=== PATIENT | female | born 1960 | race Two or more races ===

== ENCOUNTER 2023-05-01 20:00 | Inpatient (IN) | payer MEDICAID, OTHER ==
[~2023-05-01] VITALS: Ht 154.9 cm; Wt 68.9 kg
[2023-05-01 21:33] LABS: Alanine Aminotransferase 21 U/L (7-40); Albumin 4.3 g/dL (3.2-4.8); Alkaline Phosphatase 76 U/L (46-116); Anion Gap 7.2 (5-15); Aspartate Aminotransferase < 8 U/L (13-40); Blood Urea Nitrogen 19 mg/dL (9-23); Calcium 9.1 mg/dL (8.5-10.1); Carbon Dioxide 24.8 mmol/L (20-30); Chloride 109 mmol/L (98-107); Glucose 101 mg/dL (74-106); Potassium 4.3 mmol/L (3.5-5.1); Sodium 141 mmol/L (136-145)
[2023-05-01 21:34] LABS: Bilirubin, Total 0.3 mg/dL (0.2-1.0); Total Protein 6.8 g/dL (5.7-8.2)
[2023-05-01 21:40] LABS: Basophils # (auto) 0 10 ^3/uL (0-0.2); Basophils % (auto) 0.5 % (0.0-2.0); Eosinophils # (auto) 0.4 10 ^3/uL (0-0.8); Hematocrit 38.9 % (36.0-46.0); Hemoglobin 12.9 g/dL (12.2-16.2); Lymphocytes # (auto) 2.2 10 ^3/uL (0.4-5.4); Lymphocytes % (auto) 31.2 % (10.0-50.0); Mean Corpuscular Hemoglobin 29.4 pg (28.0-32.0); Mean Corpuscular Hgb Conc. 33.2 g/dL (32.0-36.0); Mean Corpuscular Volume 88.5 fL (80.0-100.0); Monocytes # (auto) 0.5 10 ^3/uL (0-1.3); Monocytes % (auto) 6.7 % (0.0-12.0); Neutrophils % (auto) 56.6 % (37.0-80.0); Nucleated Red Blood Cells % 0.1 %; Red Cell Distribution Width 13.9 % (11.8-14.3); White Blood Cell 7.1 10^3/uL (4.4-10.8)
[2023-05-01 22:10] VITALS: PULSE 77; RESP 16; O2SAT 96
[2023-05-02] MEDS ORDERED: METOCLOPRAMIDE HCL 5MG/ml INJ 2ml VIAL IV ONE (01:45)
[2023-05-02] MEDS ORDERED: diphenhdrAMINE HCL 50 MG/1 ML VL IV ONE (01:45)
[2023-05-02] MEDS ORDERED: KETOROLAC TROMETH 30 MG/ML 1ML VIAL IV ONE (01:45)
[2023-05-02] MEDS ORDERED: NITROGLYCERIN 0.4 MG SL TAB SL PRN (04:00)
[2023-05-02] MEDS ORDERED: SODIUM CHLORIDE 0.9% 1,000 ML IV SCH (04:00)
[2023-05-02] MEDS ORDERED: MORPHINE SULFATE INJ 2 MG/ml SYRG IV PRN (04:00)
[2023-05-02] MEDS ORDERED: DOCUSATE SOD 100 MG CAP PO PRN (04:00)
[2023-05-02] MEDS ORDERED: ONDANSETRON HCL 4 MG/2 ML VIAL IV PRN (04:00)
[2023-05-02] MEDS ORDERED: HYDROcodone-ACET 5/325MG TAB PO PRN (04:00)
[2023-05-02 05:36] LABS: Basophils # (auto) 0.1 10 ^3/uL (0-0.2); Basophils % (auto) 0.8 % (0.0-2.0); Eosinophils # (auto) 0.4 10 ^3/uL (0-0.8); Eosinophils % (auto) 5.3 % (0.0-7.0); Hemoglobin 11.8 g/dL (12.2-16.2); Lymphocytes # (auto) 2.4 10 ^3/uL (0.4-5.4); Lymphocytes % (auto) 30.7 % (10.0-50.0); Mean Corpuscular Hemoglobin 29.4 pg (28.0-32.0); Mean Corpuscular Hgb Conc. 32.9 g/dL (32.0-36.0); Mean Corpuscular Volume 89.4 fL (80.0-100.0); Monocytes # (auto) 0.7 10 ^3/uL (0-1.3); Monocytes % (auto) 8.5 % (0.0-12.0); Neutrophils # (auto) 4.2 10 ^3/uL (1.6-8.6); Neutrophils % (auto) 54.7 % (37.0-80.0); Nucleated Red Blood Cells % 0.1 %; Red Blood Cells 4.03 10^6/uL (4.0-5.20); Red Cell Distribution Width 13.5 % (11.8-14.3); White Blood Cell 7.7 10^3/uL (4.4-10.8)
[2023-05-02 05:47] LABS: Alanine Aminotransferase 16 U/L (7-40); Albumin 3.8 g/dL (3.2-4.8); Alkaline Phosphatase 74 U/L (46-116); Anion Gap 6.1 (5-15); Aspartate Aminotransferase < 8 U/L (13-40); BUN/Creatinine Ratio 16.2 (10.0-20.0); Blood Urea Nitrogen 12 mg/dL (9-23); Calcium 8.5 mg/dL (8.7-10.4); Carbon Dioxide 23.9 mmol/L (20-30); Chloride 111 mmol/L (98-107); Glucose 111 mg/dL (74-106); Potassium 3.7 mmol/L (3.5-5.1); Sodium 141 mmol/L (136-145)
[2023-05-02 05:48] LABS: Bilirubin, Total 0.3 mg/dL (0.2-1.0); Total Protein 6.1 g/dL (5.7-8.2)
[2023-05-02 07:31] VITALS: PULSE 66; RESP 13; O2SAT 96
[2023-05-02 08:43] LABS: Urine Bacteria FEW /hpf (None Seen); Urine Blood Negative /uL (Negative); Urine Clarity HAZY (Clear); Urine Color Yellow (Yellow); Urine Mucus FEW (None Seen); Urine Protein, UAD TRACE (Negative); Urine Specific Gravity 1.024 (1.001-1.035); Urine Urobilinogen Normal (Negative); Urine WBC 30 /hpf (0 - 5)
[2023-05-02] MEDS: ACETAMINOPHEN 325 MG TAB PO PRN (14:33)
[2023-05-02 14:43] VITALS: BP 121/72; PULSE 69; RESP 20; TEMP 97.9; O2SAT 98
[2023-05-02 15:39] LABS: Triglycerides 136 mg/dL (< 150)
[2023-05-02 15:41] LABS: Cholesterol 176 mg/dL (< 200); HDL Cholesterol 54 mg/dL (40-59)
[2023-05-02 15:53] LABS: LDL Cholesterol 108 mg/dL (< 100)
[2023-05-02] MEDS ORDERED: IOHEXOL 350 MG/ML 100ML IJ ONE (16:21)
[2023-05-02 16:33] VITALS: BP 131/66; PULSE 70; RESP 17; TEMP 98.8; O2SAT 96
[2023-05-02 17:57] VITALS: BP 131/66; PULSE 70; RESP 17; TEMP 98.8; O2SAT 96
[2023-05-02 20:00] VITALS: PULSE 73
[2023-05-02 22:00] VITALS: BP 134/79; PULSE 76; RESP 16; TEMP 97.6; O2SAT 97
[2023-05-03] MEDS: ACETAMINOPHEN 325 MG TAB PO PRN ×2 (00:19→13:04)
[2023-05-03 05:00] VITALS: BP 122/70; PULSE 75; RESP 16; TEMP 97.7; O2SAT 96
[2023-05-03 07:40] LABS: Basophils # (auto) 0 10 ^3/uL (0-0.2); Basophils % (auto) 0.4 % (0.0-2.0); Eosinophils # (auto) 0.5 10 ^3/uL (0-0.8); Eosinophils % (auto) 6.1 % (0.0-7.0); Hematocrit 36.6 % (36.0-46.0); Hemoglobin 12.1 g/dL (12.2-16.2); Lymphocytes # (auto) 2.8 10 ^3/uL (0.4-5.4); Lymphocytes % (auto) 36.8 % (10.0-50.0); Mean Corpuscular Hemoglobin 29.2 pg (28.0-32.0); Mean Corpuscular Hgb Conc. 32.9 g/dL (32.0-36.0); Mean Corpuscular Volume 88.7 fL (80.0-100.0); Monocytes # (auto) 0.6 10 ^3/uL (0-1.3); Monocytes % (auto) 7.4 % (0.0-12.0); Neutrophils # (auto) 3.8 10 ^3/uL (1.6-8.6); Neutrophils % (auto) 49.3 % (37.0-80.0); Nucleated Red Blood Cells % 0.1 %; Red Blood Cells 4.13 10^6/uL (4.0-5.20); Red Cell Distribution Width 13.8 % (11.8-14.3); White Blood Cell 7.6 10^3/uL (4.4-10.8)
[2023-05-03 08:00] VITALS: PULSE 67
[2023-05-03 08:25] LABS: Alanine Aminotransferase 16 U/L (7-40); Alkaline Phosphatase 66 U/L (46-116); Anion Gap 8.5 (5-15); BUN/Creatinine Ratio 15.8 (10.0-20.0); Blood Urea Nitrogen 12 mg/dL (9-23); Calcium 8.8 mg/dL (8.5-10.1); Carbon Dioxide 23.5 mmol/L (20-30); Chloride 109 mmol/L (98-107); Glucose 95 mg/dL (74-106); Potassium 3.8 mmol/L (3.5-5.1); Sodium 141 mmol/L (136-145)
[2023-05-03 08:27] LABS: Albumin 3.8 g/dL (3.2-4.8); Aspartate Aminotransferase < 8 U/L (13-40); Bilirubin, Total 0.3 mg/dL (0.2-1.0); Total Protein 6.2 g/dL (5.7-8.2)
[2023-05-03 09:00] VITALS: BP 129/77; PULSE 79; RESP 18; TEMP 97.7; O2SAT 96
[2023-05-03 13:00] VITALS: BP 127/67; PULSE 77; RESP 18; TEMP 98.2; O2SAT 97
[2023-05-03 17:00] VITALS: BP 146/73; PULSE 83; RESP 20; TEMP 97.9; O2SAT 97
[2023-05-03] MEDS ORDERED: IBUPROFEN 600 MG TAB PO ONE (18:15)
[2023-05-03 20:00] VITALS: PULSE 78
[2023-05-04] MEDS: ACETAMINOPHEN 325 MG TAB PO PRN ×2 (00:41→14:58)
[2023-05-04 05:00] VITALS: BP 122/63; PULSE 77; RESP 16; TEMP 97.5; O2SAT 95
[2023-05-04] MEDS ORDERED: cefTRIAXone 1GM/50ML D5W 50 ML IV ONE (07:45)
[2023-05-04 08:00] VITALS: PULSE 62
[2023-05-04] MEDS ORDERED: cefTRIAXone 1GM/50ML D5W 50 ML IV SCH (09:00)
[2023-05-04 09:10] VITALS: BP 141/69; PULSE 79; RESP 18; TEMP 98; O2SAT 98
[2023-05-04] MEDS ORDERED: levoFLOXacin 500MG 100 ML IV ONE ×2 (10:00)
[2023-05-04 13:00] VITALS: BP 128/71; PULSE 87; RESP 16; TEMP 97.5; O2SAT 98
[2023-05-04] MEDS ORDERED: CIPR500T4 PO (14:43)
[2023-05-04 15:18] VITALS: BP 128/71; PULSE 87; RESP 16; TEMP 97.5; O2SAT 99
== END 2023-05-04 16:10 | disposition home or self-care (01) | DRG 204 ==
LOC: EDBD 20:00 → ER 20:03 → TELE 05-02 04:07 → EDBD 05-02 04:07 → TELE-EAST 05-02 14:09
PROVIDERS: ADMIT Internal Medicine
DX: R55 Syncope and collapse (principal); E86.0 Dehydration; I10 Essential (primary) hypertension; I65.29 Occlusion and stenosis of unspecified carotid artery; J45.909 Unspecified asthma, uncomplicated; M50.31 Other cervical disc degeneration, high cervical region; N39.0 Urinary tract infection, site not specified; Z90.710 Acquired absence of both cervix and uterus
CPT/HCPCS: 36415; 70450; 70498; 71045; 80053; 80061; 81001; 83036; 83880; 84443; 84484; 85025; 93306; 93886; 96361; 96374; 96375; G0378; J0696; J1885; J1956; J2405